=== PATIENT | female | born 1975 | race Caucasian/White ===

== ENCOUNTER 2022-12-08 09:38 | Outpatient (CLI) | payer BC, SELFPAY | END 2022-12-08 09:39 | disposition home or self-care (01) | PROVIDERS: Visit Provider Nurse Practitioner Family | DX: Z79.899 Other long term (current) drug therapy (principal) | CPT/HCPCS: 80053; 82306; 84443 ==

== ENCOUNTER 2023-02-12 13:52 | Outpatient (CLI) | payer OTHER, SELFPAY ==
--- NOTE | 2023-02-12 14:40 | CRLHL7_ITS ---
For Patients: As a result of the Century Cures Act, medical imaging exams and procedure reports are released immediately into your electronic medical record. You may view this report before your referring provider. If you have questions, please contact your health care provider. BILATERAL SCREENING MAMMOGRAM WITH COMPUTER-AIDED DETECTION AND TOMOSYNTHESIS TECHNIQUE: CC and MLO views were obtained. These mammographic images have been obtained using full-field digital technique. These mammographic images were interpreted with the benefit of computer-aided detection. Breast Tomosynthesis was used in this interpretation. COMPARISON FILM: No priors available (requested, did not arrive). FINDINGS: The breasts are heterogeneously dense, which may obscure small masses IMPRESSION: There is no radiographic evidence for malignancy. ASSESSMENT: BI-RADS Category 2: Benign RECOMMENDATION: Routine screening mammogram in 1 year. A lay language report of this examination will be provided to the patient. Cameron Melvin M.D. Diagnostic Radiologist [email or web address] [place]/Dictated by: Cameron Melvin MD @ 03/01/2023 1:01:00 PM (Electronically Signed)
== END 2023-02-12 13:53 | disposition home or self-care (01) ==
LOC: MAMMO 13:55
PROVIDERS: PCP Obstetrics & Gynecology; Visit Provider Obstetrics & Gynecology
DX: Z12.31 Encounter for screening mammogram for malignant neoplasm of breast (principal); R92.2 Inconclusive mammogram
CPT/HCPCS: 77063; 77067

== ENCOUNTER 2023-03-24 14:46 | Outpatient (CLI) | payer OTHER, SELFPAY | END 2023-03-24 14:47 | disposition home or self-care (01) | PROVIDERS: PCP Obstetrics & Gynecology; Visit Provider Otolaryngology | DX: R42 Dizziness and giddiness (principal) | CPT/HCPCS: 84443; 86039; 86431; 86618 ==

== ENCOUNTER 2023-04-06 08:04 | Outpatient (CLI) | payer OTHER, SELFPAY ==
--- NOTE | 2023-04-06 08:00 | CRLHL7_ITS ---
For Patients: As a result of the Century Cures Act, medical imaging exams and procedure reports are released immediately into your electronic medical record. You may view this report before your referring provider. If you have questions, please contact your health care provider. INDICATION: Dizziness and giddiness TECHNIQUE: CT of the temporal bones without contrast. Coronal and axial small field of view reconstructions of both temporal bones are included. COMPARISON: CT temporal bone 01/21/2022 FINDINGS: RIGHT temporal bone: External ear: Normal imaged periauricular soft tissues. Normal external auditory canal. Normal tympanic membrane. Middle ear: Clear mastoid air cells. Clear epitympanum, mesotympanum and hypotympanum. Normal ossicular chain. Clear oval and round windows. Normal facial nerve canal. Inner ear: Normal mineralization of the otic capsule. Normal cochlea, vestibule, semicircular canals and vestibular aqueduct. Normal internal auditory canal. Vascular: Normal carotid canal and jugular fossa. LEFT temporal bone: External ear: Normal imaged periauricular soft tissues. Normal external auditory canal. Normal tympanic membrane. Middle ear: Previous partial opacification of the left mastoid air cells, a nonspecific debris within Prussak space have intervally resolved. Clear epitympanum, mesotympanum and hypotympanum. Normal ossicular chain. Clear oval and round windows. Normal facial nerve canal. Inner ear: Normal mineralization of the otic capsule. Normal cochlea, vestibule, semicircular canals and vestibular aqueduct. Normal internal auditory canal. Vascular: Normal carotid canal and jugular fossa. Osseous structures: Minimal mucosal thickening throughout the inferior maxillary sinuses, significantly improved over the interval. Included orbits and intracranial structures are unremarkable for technique. IMPRESSION: 1. Unremarkable CT appearance of the bilateral temporal bones. 2. Previous partial left mastoid air cell opacification, and nonspecific debris within Prussak space have intervally resolved. 3. Minimal mucosal thickening along the inferior maxillary sinuses, also significantly improved over the interval. Please note that all CT scans at this facility use dose modulation, iterative reconstruction, and/or weight-based dosing when appropriate to reduce radiation dose to as low as reasonably achievable. Dictated by Michelle Cedeño MD @ 04/06/2023 9:57:35 AM (Electronically Signed)
--- NOTE | 2023-04-06 09:15 | CRLHL7_ITS ---
For Patients: As a result of the Century Cures Act, medical imaging exams and procedure reports are released immediately into your electronic medical record. You may view this report before your referring provider. If you have questions, please contact your health care provider. Indication: Dizziness. Technique: Multiplanar, multisequence MRI of the brain performed without and with intravenous contrast, including high resolution imaging through the IAC`s. Contrast: 15 cc Dotarem. Comparison: CT temporal bone the same day. CT temporal bone 01/21/2022. Findings: IAC: The 5th, 7th and 8th cranial nerve complexes are intact. No abnormal signal. No cerebellopontine angle mass or mass effect. There is normal T2 signal present within the visualized inner ear structures. Partial opacification of the mastoid air cells. Brain: The corpus callosum, particularly in clivus appear intact. Craniocervical junction appears preserved. There is no restricted diffusion. No intracranial hemorrhage. The ventricles are proportionate to the cerebral sulci. The 4th ventricle appears midline. The basal cisterns appear patent. No abnormal extra-axial fluid collection identified. There is no intracranial mass, abnormal mass-effect or midline shift identified. Major intracranial vascular flow voids appear grossly intact. Both globes are preserved. Impression: 1. The 5th, 7th and 8th cranial nerve complexes are intact. No cerebellopontine angle mass or mass effect. 2. No acute/subacute infarct. 3. Partial opacification of the mastoid air cells. Dictated by Rich Ovalles MD @ 04/06/2023 1:52:27 PM (Electronically Signed)
== END 2023-04-06 08:05 | disposition home or self-care (01) ==
LOC: CT 08:05
PROVIDERS: Visit Provider Otolaryngology
DX: R42 Dizziness and giddiness (principal); J32.0 Chronic maxillary sinusitis
CPT/HCPCS: 70480; 70553; A9575

== ENCOUNTER 2023-06-11 13:11 | Outpatient (CLI) | payer OTHER, SELFPAY | END 2023-06-11 13:12 | disposition home or self-care (01) | LOC: KYNREF 13:13 | PROVIDERS: PCP Nurse Practitioner Family; Visit Provider Nurse Practitioner Family | DX: R42 Dizziness and giddiness (principal) | CPT/HCPCS: 82607 ==

== ENCOUNTER 2023-06-25 10:30 | Outpatient (RCR) | payer OTHER, SELFPAY | END 2023-09-07 10:36 | disposition home or self-care (01) | PROVIDERS: PCP Nurse Practitioner Family; Visit Provider Nurse Practitioner Family | DX: H81.11 Benign paroxysmal vertigo, right ear (principal); R26.89 Other abnormalities of gait and mobility; R44.8 Other symptoms and signs involving general sensations and perceptions; Z51.89 Encounter for other specified aftercare | CPT/HCPCS: 97110; 97140; 97162 ==

== ENCOUNTER 2023-08-27 08:57 | Outpatient (CLI) | payer BC, SELFPAY | END 2023-08-27 08:58 | disposition home or self-care (01) | PROVIDERS: PCP Nurse Practitioner Family; Visit Provider Nurse Practitioner Family | DX: R45.4 Irritability and anger (principal) | CPT/HCPCS: 83001 ==

== ENCOUNTER 2023-11-03 14:28 | Outpatient (CLI) | payer BC, SELFPAY ==
--- NOTE | 2023-11-03 15:00 | CT_ITS ---
Patient: KEYONA EASTON Facility:?[facility] Patient ID:?[id number] Site Patient ID:?[id number]. Site :?[id number] Study:?CT-Abdomen/Pelvis W/ 78CC ISOVUE 370-11/03/2023 2:49:29 PM Ordering Physician:CHAN Final Report: INDICATION: Rectal abscess and perineal pain TECHNIQUE: Axial images were obtained from the diaphragm to the pubic symphysis. Reformats were obtained in the coronal and sagittal plane. IV Contrast: 78 cc Isovue 370 Oral Contrast: None COMPARISON: None. FINDINGS: Lower chest: Unremarkable. Liver: Unremarkable. Normal in size and attenuation. No masses. Gallbladder and bile ducts: Unremarkable. No stones or inflammation. No biliary dilatation. Spleen: Unremarkable. Normal in size without mass. Pancreas: Unremarkable. No mass or inflammation. Adrenal glands: Unremarkable. No nodules. Kidneys: Unremarkable. No masses, stones, or hydronephrosis. Vasculature: Unremarkable. GI tract: Unremarkable. No dilated bowel or focal inflammation. Pelvis: Status post hysterectomy with bilateral ovarian follicles, largest measuring 10 millimeters. The ischioanal fossa is unremarkable. No adjacent fat stranding. Trace linear fluid along the margin of the anal canal (see series 4, image 53). Bones: Unremarkable for age. IMPRESSION: No perirectal/perianal inflammation. Linear fluid along the margin of the anal canal. This is more likely intraluminal although in the setting of perianal pain, a trace perianal abscess is difficult to entirely exclude. If there is high clinical suspicion, note that MRI would have improved characterization of perianal anatomy. Please note that all CT scans at this facility use dose modulation, iterative reconstruction, and/or weight-based dosing when appropriate to reduce radiation dose to as low as reasonably achievable. Dictated by Edmond Benson MD @ 11/03/2023 3:22:06 PM Signed by:?Edmond Benson MD @11/03/2023 3:22:06 PM (Electronic Signature)
== END 2023-11-03 14:29 | disposition home or self-care (01) ==
LOC: CT 14:28
PROVIDERS: PCP Nurse Practitioner Family; Visit Provider Surgery
DX: K62.89 Other specified diseases of anus and rectum (principal)
CPT/HCPCS: 74177; Q9967

== ENCOUNTER 2024-07-03 08:24 | Outpatient (CLI) | payer BC, SELFPAY | END 2024-07-03 08:25 | disposition home or self-care (01) | PROVIDERS: PCP Nurse Practitioner Family; Visit Provider Nurse Practitioner Family | DX: R53.83 Other fatigue (principal); Z13.6 Encounter for screening for cardiovascular disorders | CPT/HCPCS: 80050; 80053; 80061; 82306; 82728; 84436; 84443; 84480; 85025; 85651 ==

== ENCOUNTER 2025-01-15 09:07 | Outpatient (CLI) | payer BC, SELFPAY | END 2025-01-15 09:08 | disposition home or self-care (01) | PROVIDERS: PCP Nurse Practitioner Family; Visit Provider Nurse Practitioner Family | DX: D47.2 Monoclonal gammopathy (principal); R53.83 Other fatigue; Z79.899 Other long term (current) drug therapy | CPT/HCPCS: 82306; 82728; 84443; 85025 ==

== ENCOUNTER 2025-03-24 03:21 | Emergency (ER) | payer BC, SELFPAY ==
--- NOTE | 2025-03-24 03:31 | CRLHL7_ITS ---
For Patients: As a result of the Cures Act, medical imaging exams and procedure reports are released immediately into your electronic medical record. You may view this report before your referring provider. If you have questions, please contact your health care provider. Indication: Cough Technique: Two views of the chest Comparison: None Findings/Impression: No acute cardiopulmonary process detected. Dictated by Edmund Campuzano MD @ 03/24/2025 3:48:33 AM (Electronically Signed)
[2025-03-24 03:32] VITALS: BP 151/104; PULSE 87; RESP 24; TEMP 35.9; O2SAT 97; BMI 30.1
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
[2025-03-24 03:52] LABS: Lactate* 1.1 mmol/L (0.5-1.9)
[2025-03-24 03:53] LABS: Hematocrit 36.9 % (33.0-51.0); Hemoglobin* 12.7 gm/dL (12.0-16.0); Immature Granulocytes Abs Auto 0.01 K/uL (0.00-0.30); Immature Granulocytes Pct Auto 0.2 %; Mean Corpuscular HGB Conc 34 gm/dL (32-36); Mean Corpuscular Hemoglobin 30 pg (26-34); Mean Corpuscular Volume 87 fL (80-100); RDW Coefficient of Variation % 11.6 % (11.5-15.5); Red Blood Count 4.26 m/uL (4.00-5.20); White Blood Count* 5.45 K/uL (4.50-11.00)
[2025-03-24 03:56] LABS: Lymphocytes Absolute Auto 0.90 K/uL (0.90-2.90); Slide Review Reflex No
[2025-03-24 04:09] LABS: Chloride* 104 mmol/L (96-114)
[2025-03-24 04:10] LABS: Albumin* 4.3 g/dL (3.3-5.0); Potassium* 4.9 mmol/L (3.6-5.1); Sodium* 141 mmol/L (135-149)
[2025-03-24 04:12] LABS: Blood Urea Nitrogen* 10 mg/dL (5-24); Creatinine* 0.7 mg/dL (0.5-1.5); Est. Creatinine Clearance* 81.30; Estimated Glomerular Filt Rate 107 ml/min
[2025-03-24 04:13] LABS: Alanine Aminotransferase* 25 U/L (4-35); Alkaline Phosphatase* 68 U/L (40-150); Anion Gap 7 mEq/L (7-15); Aspartate Amino Transferase* 32 U/L (12-35); Bilirubin Total* 0.4 mg/dL (0.1-1.5); Calcium* 10.1 mg/dL (8.4-10.6); Carbon Dioxide* 30 mmol/L (20-32); Glucose* 149 mg/dL (60-115); Total Protein* 7.8 g/dL (6.0-8.3)
== END 2025-03-24 04:32 | disposition home or self-care (01) ==
PROVIDERS: Emergency Provider Internal Medicine; PCP Nurse Practitioner Family
DX: R11.0 Nausea (principal)
CPT/HCPCS: 36415; 71046; 80053; 83605; 85025; 99283; 99284

== ENCOUNTER 2025-07-17 14:40 | Outpatient (CLI) | payer BC, SELFPAY | END 2025-07-17 14:41 | disposition home or self-care (01) | PROVIDERS: PCP Nurse Practitioner Family; Visit Provider Nurse Practitioner Family | DX: R10.9 Unspecified abdominal pain (principal); R39.9 Unspecified symptoms and signs involving the genitourinary system; R10.A0 Flank pain, unspecified side | CPT/HCPCS: 80048; 81001; 85025; 87086 ==

== ENCOUNTER 2025-07-23 11:54 | Emergency (ER) | payer BC, SELFPAY ==
[2025-07-23 11:59] VITALS: BP 113/76; PULSE 80; RESP 16; TEMP 37.4; O2SAT 97; BMI 28.1
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
--- NOTE | 2025-07-23 12:38 | CRLHL7_ITS ---
For Patients: As a result of the Century Cures Act, medical imaging exams and procedure reports are released immediately into your electronic medical record. You may view this report before your referring provider. If you have questions, please contact your health care provider. INDICATION: LOWER ABDOMINAL PAIN TECHNIQUE: CT of the abdomen and pelvis was obtained with 78 mL of Isovue 370 intravenous contrast. Please note that all CT scans at this facility use dose modulation, iterative reconstruction, and/or weight-based dosing when appropriate to reduce radiation dose to as low as reasonably achievable. COMPARISON: 11/03/2023. FINDINGS: Lower thorax: Normal. Liver and biliary tree: Normal. Gallbladder: Normal. Spleen: Normal. Pancreas: Normal. Adrenal glands: Normal. Kidneys and ureters: No hydronephrosis or obstructing renal calculi. Gastrointestinal tract: No evidence of acute appendicitis. No evidence of bowel obstruction. Peritoneal cavity: Normal. Bladder: Normal. Pelvic organs: Status post hysterectomy. Vasculature: Normal. Lymph nodes: Normal. Abdominal wall: Normal. Musculoskeletal: Normal. IMPRESSION: No acute intra-abdominal abnormality is seen. Please note that all CT scans at this facility use dose modulation, iterative reconstruction, and/or weight-based dosing when appropriate to reduce radiation dose to as low as reasonably achievable. Dictated by Ty Don MD @ 07/23/2025 1:53:16 PM (Electronically Signed)
[2025-07-23 13:00] LABS: Appearance Urine Clear (Clear)
[2025-07-23 13:10] LABS: Hematocrit* 38.5 % (33.0-51.0); Hemoglobin* 12.9 gm/dL (12.0-16.0); Immature Granulocytes Abs Auto 0.01 K/uL (0.00-0.30); Immature Granulocytes Pct Auto 0.2 %; Lymphocytes Absolute Auto 2.03 K/uL (0.90-2.90); Mean Corpuscular HGB Conc 34 gm/dL (32-36); Mean Corpuscular Hemoglobin 30 pg (26-34); Mean Corpuscular Volume 88 fL (80-100); RDW Coefficient of Variation % 11.7 % (11.5-15.5); Red Blood Count* 4.38 m/uL (4.00-5.20); White Blood Count* 6.36 K/uL (4.50-11.00)
[2025-07-23 13:14] LABS: Slide Review Reflex No
[2025-07-23 13:25] LABS: Chloride* 102 mmol/L (96-114); Potassium* 4.7 mmol/L (3.6-5.1); Sodium* 136 mmol/L (135-149)
[2025-07-23 13:28] LABS: Blood Urea Nitrogen* 15 mg/dL (5-24); Creatinine* 0.9 mg/dL (0.5-1.5); Est. Creatinine Clearance* 63.24; Estimated Glomerular Filt Rate 79 ml/min
[2025-07-23 13:29] LABS: Anion Gap 4 mEq/L (7-15); Calcium* 9.6 mg/dL (8.4-10.6); Carbon Dioxide* 30 mmol/L (20-32); Glucose* 95 mg/dL (60-115)
== END 2025-07-23 14:40 | disposition home or self-care (01) ==
PROVIDERS: Emergency Provider Emergency Medicine; PCP Nurse Practitioner Family
DX: R10.30 Lower abdominal pain, unspecified (principal)
CPT/HCPCS: 36415; 74177; 80048; 81001; 85025; 86140; 99284; 99285; J7030; Q9967